=== PATIENT | male | born 1955 | race Caucasian/White ===

== ENCOUNTER 2023-06-06 11:21 | Emergency (ER) | payer MEDICARE, SELFPAY ==
[2023-06-06 11:37] VITALS: BP 152/90; PULSE 63; RESP 16; TEMP 36.4; O2SAT 99
--- NOTE | 2023-06-06 12:18 | ED.SKABFB ---
HPI - Skin/Abscess/Foreign Bdy General Chief complaint: Skin/Abscess/Foreign Body Stated complaint: rash on body Time Seen by Provider: 06/06/23 12:12 Source: patient and RN notes reviewed Mode of arrival: ambulatory Limitations: no limitations History of Present Illness HPI narrative: Patient presents today with a 3-4 day history of rash to the bilateral arms, legs, into the right eyelid. The rash is continuing to spread. 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 Denies facial swelling, shortness of breath, difficulty swallowing. He has been using calamine lotion and Benadryl with mild relief. Related Data Home Medications Medication Instructions Recorded Confirmed hydrochlorothiazide 25 mg tablet 25 mg PO DAILY 06/06/23 06/06/23 lisinopril 20 mg tablet 20 mg PO DAILY 06/06/23 06/06/23 metoprolol succinate 50 mg 50 mg PO DAILY 06/06/23 06/06/23 tablet,extended release 24 hr rosuvastatin 5 mg tablet 5 mg PO DAILY 06/06/23 06/06/23 Allergies Allergy/AdvReac Type Severity Reaction Status Date / Time No Known Drug Allergies Allergy Unknown Other Verified 06/06/23 11:38 Review of Systems Review of Systems: CONSTITUTIONAL: Denies body aches, fever, chills, or sweats. EYES: Denies visual changes, redness, or discharge. ENT: Denies rhinorrhea, congestion, sore throat, or otalgia. CARDIOVASCULAR: Denies chest pain, palpitations, or edema. RESPIRATORY: Denies cough or dyspnea. GASTROINTESTINAL: Denies abdominal pain, nausea, vomiting, or diarrhea. GENITOURINARY: Denies dysuria or hematuria. SKIN: + pruritic rash MUSCULOSKELETAL: Denies back pain, joint pain, or myalgia. NEUROLOGIC: Denies headache, numbness, tingling, or weakness. PSYCH: Denies depression or anxiety. [facility] Past Medical History Medical History Hyperlipidemia Hypertension Social History Social History Gender identity (if verbalized by the patient): Male Comments At time of signature, I have reviewed and agree with nursing past medical, surgical, social and family history unless otherwise noted. Please see nursing chart for further information. There is no relevant family history pertinent to the presenting complaint Exam Narrative: GENERAL: Well-appearing, well-nourished, and in no acute distress. HEAD: Normocephalic, atraumatic. EYES: EOMI. No redness or drainage. Conjunctivae normal. ENT: Mucous membranes pink and moist. NECK: Normal AROM. CHEST: No respiratory distress. EXTREMITIES: Normal range of motion. No edema. SKIN: Warm, dry. Capillary refill normal. Normal skin turgor. Erythematous maculopapular rash widespread over the bilateral forearms and antecubital fossae, bilateral thighs, and a small patch to the right eyelid. No active weeping or induration. NEURO: No focal deficits. Alert and oriented x3. Gait steady. PSYCH: Normal affect. No signs of depression or anxiety. Course Course Level of Care: Express Care Visit Vital Signs Vital signs: Vital Signs Temperature 97.6 F 06/06/23 11:37 Pulse Rate 63 06/06/23 11:37 Respiratory Rate 16 06/06/23 11:37 Blood Pressure 152/90 H 06/06/23 11:37 Pulse Oximetry 99 06/06/23 11:37 Oxygen Delivery Room Air 06/06/23 11:37 Temperature 97.6 F 06/06/23 11:37 Pulse Rate 63 06/06/23 11:37 Respiratory Rate 16 06/06/23 11:37 Blood Pressure 152/90 H 06/06/23 11:37 Pulse Oximetry 99 06/06/23 11:37 Oxygen Delivery Room Air 06/06/23 11:37 Reviewed MDM - Skin/Abscess/Foreign Bdy MDM Narrative Medical decision making narrative: Exam consistent with contact dermatitis/poison puja dermatitis. Will treat with tapering dose of prednisone. Anticipatory guidance given. Differential Diagnosis Differential diagnosis: Likely abscess of skin or subcutaneous tissue, viral exanthem, cory
== END 2023-06-06 12:25 | disposition home or self-care (01) ==
PROVIDERS: Emergency Provider Nurse Practitioner; PCP Student in an Organized Health Care Education/Training Program
DX: L25.9 Unspecified contact dermatitis, unspecified cause (principal); E78.5 Hyperlipidemia, unspecified; I10 Essential (primary) hypertension
CPT/HCPCS: 99213; G0463

== ENCOUNTER 2024-10-01 09:32 | Emergency (ER) | payer MEDICARE, SELFPAY ==
[2024-10-01 09:39] VITALS: BP 144/61; PULSE 63; RESP 16; TEMP 36.6; O2SAT 100
--- NOTE | 2024-10-01 09:41 | ED_ITS ---
HPI - Skin/Abscess/Foreign Bdy General Chief complaint: Skin/Abscess/Foreign Body Stated complaint: Rash On Legs Time Seen by Provider: 10/01/24 09:41 Source: patient, RN notes reviewed and old records reviewed Mode of arrival: ambulatory Limitations: no limitations History of Present Illness HPI narrative: Patient presents with complaints of rash to bilateral arms and legs. He denies any change in lotions, soaps, detergents. He denies any new foods. Rash is primarily on the EACs and the lower legs. He has been applying Benadryl cream, which did help the itch. He also applied a topical solution to ?dry it up?. Now the affected areas are quite dry and irritated. Patient is unsure of how to proceed. He denies all other complaints today. He denies other injury in trauma Related Data Home Medications ?Medication ?Instructions ?Recorded ?Confirmed ?Last Taken ?Type hydrochlorothiazide 25 mg tablet 25 mg PO DAILY 06/06/23 06/06/23 Unknown History lisinopril 20 mg tablet 20 mg PO DAILY 06/06/23 06/06/23 Unknown History metoprolol succinate 50 mg 50 mg PO DAILY 06/06/23 06/06/23 Unknown History tablet,extended release 24 hr aspirin 81 mg tablet,delayed 81 mg PO DAILY 10/01/24 Unknown History release (Adult Aspirin Regimen) coenzyme Q10 PO 10/01/24 Unknown History rosuvastatin 10 mg tablet mg 10/01/24 Unknown History Allergies Allergy/AdvReac Type Severity Reaction Status Date / Time No Known Drug Allergies Allergy Unknown Other Verified 10/01/24 09:35 Review of Systems Review of Systems: All systems reviewed & are unremarkable except as noted in HPI and below Constitutional: Constitutional: Reports no additional constitutional complaints ENT: Reports system reviewed and no additional complaints, except as documented Cardiovascular: Cardiovascular: Reports no additional cardiovascular complaints Respiratory: Respiratory: Reports no additional respiratory complaints Gastrointestinal: Gastrointestinal: Reports no additional gastrointestinal complaints Integumentary/Breasts: Skin/Breast: Reports system reviewed and no additional complaints, except as docu and Reports as per HPI [facility] Past Medical History Medical History Hyperlipidemia Hypertension Social History Social History Gender identity (if verbalized by the patient): Male Comments At the time of my signature, I reviewed and agree with the nursing past medical, surgical, social, and family history. There is no relevant family history pertinent to the patient complaint. Exam Const: General: cooperative, no acute distress, alert and awake Orientation/consciousness: oriented to person, oriented to place and oriented to time HENMT: Head: normal to inspection Resp: Effort & Inspection: normal respiratory effort and able to speak in complete sentences Auscultation: clear to auscultation bilaterally, no crackles, no rales, no rhonchi and no wheezes Cardio: Palpation: normal PMI Rate: regular rate Rhythm: regular rhythm Heart sounds: S1 normal heart sound present and S2 normal heart sound present Skin: Other: Rash consistent with eczema noted to bilateral ACs and bilateral lower legs Neuro: General: oriented to person, oriented to place and oriented to time Cranial nerves: Yes CN's II-XII intact bilaterally Psych: Appearance: grossly normal Thought process: Normal thought process present Insight: Good insight present (Psych) Judgement: Good judgement present (Psych) Course Course Level of Care: Express Care Visit Vital Signs Vital signs: Reviewed MDM - Skin/Abscess/Foreign Bdy MDM Narrative Medical decision making narrative: Rash consistent with eczema noted to bilateral ACs and lower legs. Prednisone burst. Patient advised to apply a moisturizer such as Aquaphor or Eucerin to the affected areas. Follow with primary care provider. Emergency department for new or worse symptoms. Discharge instructions reviewed with patient, as well as provided in writing per nursing staff. The instructions also include specific and strict return/GO TO THE ER as well as f/u information. All questions have been answered, and the patient deny any further questions with discharge and discharge plan. Some parts of this dictation were generated by voice recognition software and may contain typographical and/or grammatical inaccuracies. Differential Diagnosis Differential diagnosis: Likely viral exanthem, dermatophytosis, eczema and contact dermatitis Medical Records Attestation: I reviewed the patient's medical records. Discharge Plan Discharge Clinical Impression: Eczema Qualifiers: Eczema type: unspecified Qualified Code(s): L30.9 - Dermatitis, unspecified Patient Disposition: Home, Self-Care Condition: Stable Instructions: Antibiotic Form, Eczema (ED) Additional Instructions: Take medications as prescribed. Follow with primary care provider. Emergency department for new or worse symptoms Apply a moisturizer such as Aquaphor to the affected area Patient Language: [place] Prescriptions: New prednisone 50 mg tablet 50 mg PO DAILY Qty: 5 0RF No Action hydrochlorothiazide 25 mg tablet 25 mg PO DAILY metoprolol succinate 50 mg tablet extended release 24 hr 50 mg PO DAILY lisinopril 20 mg tablet 20 mg PO DAILY rosuvastatin 10 mg tablet aspirin [Adult Aspirin Regimen] 81 mg tablet,delayed release (DR/EC) 81 mg PO DAILY coenzyme Q10 [Co Q-10] PO Follow-up/Referrals: Maurisio,DO [place] [Primary Care Provider] - Time of Disposition: 09:56
== END 2024-10-01 10:00 | disposition home or self-care (01) ==
PROVIDERS: Emergency Provider Nurse Practitioner Family; PCP Student in an Organized Health Care Education/Training Program
DX: L30.9 Dermatitis, unspecified (principal); E78.5 Hyperlipidemia, unspecified; I10 Essential (primary) hypertension
CPT/HCPCS: 99213; G0463

== ENCOUNTER 2025-06-28 13:43 | Outpatient (CLI) | payer MEDICARE, SELFPAY ==
--- NOTE | ~2025-06-28 | PE_ITS ---
EXAMINATION: PET_PETPSMAST_PT DATE: 06/28/2025 15:54 INDICATION: Prostate cancer TECHNIQUE: 5.011 mCi of Illucix Ga-68([id number]) was administered i.v. Low dose computed tomography (CT) images were acquired from the base of the brain to the base of the brain to the proximal thighs for attenuation correction and anatomic localization. Positron emission tomography (PET) images were acquired in the same distribution beginning 71 minutes after injection. Images including fused PET/CT images were reconstructed in axial, coronal, and sagittal planes. Automated exposure control technique was employed. The dose-length product was 1034.35 mGy-cm. COMPARISON: None FINDINGS: Head/neck: Typical pattern of symmetric physiologic increased activity in the lacrimal, parotid and submandibular glands as well as along the mucosa of the nasal and oral cavities, pharynx and hypopharynx. No pathologically enlarged cervical lymphadenopathy or suspicious foci of increased uptake in the visualized head or neck. Chest: Mild dependent atelectasis in the bilateral lower lobes. No suspicious pulmonary nodules, pneumonia or other pulmonary infiltrates. No pleural effusion. Heart size normal. Atherosclerotic coronary artery calcification. No pericardial effusion. Thoracic aorta is normal in caliber. Calcified left hilar lymph node. No pathologically enlarged or PSMA avid thoracic lymphadenopathy. Abdomen/pelvis/proximal thighs: Physiologic renal accumulation and excretion of activity in the kidneys, bladder and along portions of ureters. Photopenic defects associated with bilateral renal cysts measuring 6.2 cm on the right and 3.2 cm on the left. Status post prostatectomy. No abnormal soft tissue densities at the prostatectomy bed aside from the intense excreted urine contrast in the bladder there is no other abnormal activity in the region of the prostatectomy to suggest residual/locally recurrent disease although sensitivity is decreased in the immediate vicinity of the bladder activity. Normal degree and slightly heterogenous pattern of increased uptake throughout the liver and spleen without radiologic correlate or dominant PSMA avid lesion. The gallbladder, pancreas and bilateral adrenal glands are normal. Moderate uptake scattered throughout the bowels with typical duodenal and proximal jejunal predominance and without radiologic correlate, also likely physiologic. No other abnormal foci of increased uptake or pa thologically enlarged lymphadenopathy in the abdomen, pelvis or proximal thighs. Musculoskeletal: Severe left-sided and moderate to severe right-sided hip osteoarthritis. Moderate lower cervical, mild to moderate thoracic and severe lumbar spondylosis. No suspicious lytic, blastic or abnormally PSMA avid bone lesions. IMPRESSION: 1. Status post prostatectomy for reported prostate cancer. No lesion suspicious for residual/locally recurrent or metastatic disease. Reviewed, dictated and finalized at location A. [employer]
== END 2025-06-28 13:44 | disposition home or self-care (01) ==
PROVIDERS: PCP Student in an Organized Health Care Education/Training Program; Visit Provider Physician Assistant
DX: C61 Malignant neoplasm of prostate (principal); Z90.79 Acquired absence of other genital organ(s)
CPT/HCPCS: 78815; A9596